=== PATIENT | male | born 1950 | race Caucasian/White ===

== ENCOUNTER 2024-11-05 12:10 | Emergency (ER) | payer MEDICARE, SELFPAY ==
[2024-11-05] VITALS (55 sets, daily range): BP systolic 125–182; BP diastolic 62–136; PULSE 61–91; RESP 12–36; TEMP 36.9; O2SAT 90–98
--- NOTE | 2024-11-05 12:00 | DI.CT_ITS ---
Exam(s) CT CHEST/ABD/PEL W CT THORACIC LUMBAR SPINE REC EXAM: CT CHEST/ABD/PEL W CLINICAL HISTORY: Trauma. TECHNIQUE: Imaging Protocol: Axial computed tomography images with coronal and sagittal reformatted images were created and reviewed. Computer aided detection (CAD) was utilized. Axial, coronal and sagittal images of the thoracic and lumbar spine were reconstructed from the chest abdomen pelvic CT in bone and soft tissue algorithm. CONTRAST MATERIAL: Intravenous: Omnipaque 350 Contrast volume:100 ml Oral: no COMPARISON: CR XR PORTABLE CHEST AP from 11/05/[address] THORACIC LUMBAR SPINE REC from 11/05/2024 FINDINGS: CHEST: Pulmonary parenchyma: No consolidation. No dominant measurable mass. Tracheobronchial tree: No bronchiectasis. No mucous plugging.No bronchial wall thickening. Pleura: No effusion or pneumothorax. Mediastinum: Within moderate size hiatal hernia. No evidence of adenopathy. Pulmonary arteries: No visible emboli. Cardiovascular: The heart size is normal. Coronary arteries are heavily calcified. No pericardial effusion. Thoracic aorta non-dilated. Bones: Unremarkable minimally displaced left posterior 7th and 8th rib fractures. No lytic or blasti c lesions.No thoracic compression fractures. Degenerative changes and minimal scoliosis are noted. Soft tissues: Unremarkable. ABDOMEN and PELVIS: Exam is mildly limited by patient arm position creating streak attic fact on the upper abdomen. Also streak artifact related to metallic densities outside of the patient. Liver: Normal density. No suspicious mass. Gallbladder and biliary tract: No evidence of stones or wall thickening. No biliary dilatation. Pancreas: Normal density, no abnormal calcifications or inflammatory process. Spleen: Normal. Kidneys: Normal size, contour and axis. No radiodense stones. No obstructive uropathy. No suspicious masses seen. Adrenal glands: No masses seen. Aorta: Abdominal portion non-dilated. Lymph nodes: Within normal limits. Soft tissues: Intramuscular lipoma noted in the left abductor groove. Bladder: Unremarkable. Bowel: No obstruction or bowel wall thickening. Diverticulosis of the descending and sigmoid colon. The appendix is normal peer Peritoneal cavity: No ascites. No focal collection. No mesenteric inflammatory response. No free ai r. Bones: New and degenerative disc changes. Question fractures. Posterior elements are intact. Facet degenerative changes are present. Mild scoliosis. Reproductive organs: Unremarkable for age. IMPRESSION: Minimally displaced left 7th and 8th rib fractures. No evidence of pulmonary contusion or pneumothor ax. No acute abnormality in the abdomen or pelvis. No thoracic or lumbar spine fractures. RADIATION DOSE DELIVERED: 512.01mGy.cm Total DLP DATA REPOSITORY: All CT scans at this facility are submitted to the National Radiology Data Registry (NRDR) Dose Index Registry (DIR) with the [employer] (ACR). RADIATION OPTIMIZATION: All CT scans at this facility use at least one of these dose optimization te chniques: automated exposure control; mA and/or kV adjustment per patient size (includes targeted exa ms where dose is matched to clinical indication); or iterative reconstruction.
--- NOTE | 2024-11-05 12:01 | ED.GENADUL_ITS ---
Discharge Plan Discharge Details Chief Complaint: Trauma Clinical Impression: Multiple rib fractures, Injury while downhill skiing, Mild TBI (traumatic brain injury) Primary Care Provider: None,None ED Provider: Armando Simon Home Meds and New Rx's Prescriptions: No Action omeprazole 20 mg capsule,delayed release(DR/EC) 20 mg PO DAILY Patient Comments: TAKE ONE CAPSULE BY MOUTH EVERY DAY 30 MINTUES BEFORE MORNING MEAL HPI General Date/Time Provider Initiated Documentation: 11/05/24 12:16 . HPI Narrative: MDM Primary survey intact. Reassuring shock index. Negative E-FAST exam. Chest x- ray pelvis film obtained and trauma ROM and unremarkable. Patient transferred for CT scan which showed minimally displaced left seventh and eighth ribs. No pulmonary contusion. No pneumothorax. Patient saturating well on room air. Labs unremarkable. Given unclear etiology of fall I obtained troponin testing which was unremarkable. Patient is still having perseverating questions. He is confused about the events leading up to this fall. His pain as well as feeling well-controlled on 4 of morphine. Beyond this confusion is neurologically intact. I requested that Dr. Cooper from the general surgery team evaluate the patient. He will require tertiary survey. I have updated his tetanus and given the abrasions to his face I have ordered 2 g of cephalexin. I advanced his diet and cleared his c-collar. 4:30 PM I was in touch with Dr. Cooper who advised the patient would benefit from tertiary care transfer as he would likely need occupational therapy. I asked health community service representative Izabella to reach out to [facility] 4:45 PM I updated the patient his and signed patient out to Dr. Randall. HPI This is a 74-year-old male arrived emerged part via EMS following a trauma at the [facility]. He reportedly fell and was unconscious for several minutes. He was alert initially alert and oriented but subsequently developed repetitive questioning. He has pain in his low back. He had reassuring vitals. He has bilateral 18-gauge minutes. Patient is not anticoagulated. Exam General: Well-appearing in no acute distress perseverating and confused. Head: Normocephalic, atraumatic. Eye:[Pupils equal, round reactive to light.] Extraocular eye movements intact. No conjunctival injection. No scleral icterus. Ear, nose, mouth, throat: Normal voice, handling secretions normally. No hemotympanum bilaterally. No septal hematoma. Abrasion to chin and left side of nose with associated nasal swelling. No midface instability. Neck: Trachea midline. No midline cervical spinal tenderness. Patient wearing c-collar. Cardiovascular: Well-perfused distal extremities. Regular rate and rhythm. Respiratory: Nonlabored respiration. Clear lungs bilaterally. No flail segments. Back: No step-offs. No deformities. Mid thoracic spinal tenderness. No lumbar spinal tenderness. Gastrointestinal: Nondistended abdomen. Soft. Nontender. No rebound. No guarding. Musculoskeletal: No edema. Moving all 4 extremities spontaneously. 5 out of 5 bilateral upper lower extremity strength. Bilateral upper and lower extremities nontender. Full range of motion. Skin: Normal for age and race, grossly normal temperature and turgor. No acute rash. Neurologic: Alert and appropriate, no apparent acute deficits. GCS 14: E4, V4, M6. Psychiatric: Mood and manner are appropriate. Grooming and personal hygiene are appropriate. Related Data Home Medications ?Medication ?Instructions ?Recorded ?Confirmed omeprazole 20 mg capsule,delayed 20 mg PO DAILY 11/05/24 11/05/24 release Allergies Allergy/AdvReac Type Severity Reaction Status Date / Time No Known Allergies Allergy Verified 11/05/24 14:51 Medical Decision Making Quality:SDOH Health Related Social Needs: No Data to Display PFSH All Active Problems (Updated 11/05/24 @ 15:34 by Armando Simon MD) Mild TBI (traumatic brain injury) (Acute) Injury while downhill skiing (Acute) Multiple rib fractures (Acute) Social History Smoking/Tobacco Use Status: Former Tobacco Use Smoking risk assessment performed?: Yes Drug use: Occasionally POCUS Exam (ED) Efast Exam DATE OF EXAM: 11/05/24 TIME OF EXAM: 12:45 PROVIDER THAT PEFORMED THE STUDY: Armando Simon IS THIS A REPEAT EXAM DURING THIS ENCOUNTER: no REASON FOR EXAM: Other (Trauma) indication: Trauma VISUALIZED STRUCTURES: Hepatorneal space, Pelvis, Pericardium, Perisplenic space, Pleural space/left, Pleural space/right and Other structure: Bilateral lungs PERTINENT FINDINGS/IMPRESSION: no apparent free fluid, no pericardial effusion, no pleural effusion on the left side, no pleural effusion on the right side, no pneumothorax on left side and no pneumothorax on right side INCIDENTAL FINDINGS: Negative eFAST exam Limited Transthoracic Echo: Exam complete Limited Abdominal Exam: Exam complete Limited Retroperitoneal Exam: Exam complete
--- NOTE | 2024-11-05 12:04 | DI.CT_ITS ---
Exam(s) CT HEAD CERV SPINE FACIAL WO EXAM: CT HEAD CERV SPINE FACIAL WO CLINICAL HISTORY: Trauma. TECHNIQUE: Imaging Protocol: Axial computed tomography images with coronal and sagittal reformatted images were created and reviewed COMPARISON: No exams were available for comparison FINDINGS: CT Head: Ventricles and Extra axial spaces: Normal in size and morphology for the patient's age. Hemorrhage: None. Cerebral parenchyma: No evidence of acute hemorrhage or acute infarct. Midline shift: None. Brainstem/Cerebellum: Normal. Calvarium: Normal. Visualized Paranasal sinuses/Mastoids: Clear. Soft Tissues: Unremarkable. CT Face: Facial Bones: No fracture is noted in facial bones. Sinuses and Mastoids: Unremarkable. Globes, extraocular muscles, optic nerves and retrobulbar fat: Normal. Upper aerodigestive tract: Normal. Mandible and bilateral temporomandibular joints: Normal. Soft tissues: Normal. CT Cervical Spine: Bones: No acute fracture or subluxation. Advanced degenerative disc changes. Soft Tissues: No hematoma. Atrophy of the left submandibular gland versus prior surgery. Lung Apices: Clear. IMPRESSION: 1. No acute intracranial process. 2. No acute fracture or subluxation in the cervical spine. 3. No acute facial fracture. RADIATION DOSE DELIVERED: 1,663.22mGy.cm Total DLP DATA REPOSITORY: All CT scans at this facility are submitted to the National Radiology Data Registry (NRDR) Dose Index Registry (DIR) with the [employer] (ACR). RADIATION OPTIMIZATION: All CT scans at this facility use at least one of these dose optimization te chniques: automated exposure control; mA and/or kV adjustment per patient size (includes targeted exa ms where dose is matched to clinical indication); or iterative reconstruction.
[2024-11-05] MEDS: Normal Saline 500 ML 1000 ML IV (12:23)
[2024-11-05] MEDS: fentaNYL 100 MCG/2 ML VIAL 50 MCG IVP (12:23)
--- NOTE | 2024-11-05 12:39 | DI.RAD_ITS ---
Exam(s) XR PELVIS AP EXAM: XR PELVIS AP CLINICAL HISTORY: Trauma. TECHNIQUE: 2D digital imaging was performed. Single AP view. COMPARISON: No exams were available for comparison FINDINGS: BONES: No acute fracture is present. No bony destructive lesion is seen. JOINTS: No dislocation present. Mild left hip joint space narrowing and acetabular spurring. The SI joints and pubic symphysis are unremarkable. SOFT TISSUE: Normal. IMPRESSION: No acute abnormality. Mild degenerative changes of the left hip. DATA REPOSITORY: RADIATION DOSE DELIVERED:
--- NOTE | 2024-11-05 12:40 | DI.RAD_ITS ---
Exam(s) XR PORTABLE CHEST AP EXAM: XR PORTABLE CHEST AP CLINICAL HISTORY: Trauma TECHNIQUE: 2D digital imaging was performed. COMPARISON: CR CHEST 2 VIEWS PA,LAT from 10/04/2013 FINDINGS: Exam is limited by overlying clothing. LUNGS: Clear. No pleural abnormality seen. HEART: Normal size. AORTA: Normal diameter. BONES: No grossly displaced rib fracture is visible. There are degenerative changes in the thoracic spine. Soft tissues: Unremarkable. IMPRESSION: No acute findings. DATA REPOSITORY: RADIATION DOSE DELIVERED:
[2024-11-05] MEDS: ceFAZolin 2 GM/50 ML BAG IVPB (12:52)
[2024-11-05] MEDS: Normal Saline - Diluent 50 ML VIAL IJ (12:54)
[2024-11-05] MEDS: Omnipaque 350 MG/ML 100 ML BTL IJ (12:54)
[2024-11-05 13:00] LABS: Abs Immature Grans 0.03 10^3/uL (0.0-0.06); Absolute Basophil Count 0.02 10^3/uL (0.0-0.2); Absolute Eosinophil Count 0.04 10^3/uL (0.0-0.7); Absolute Lymphocyte Count 0.99 10^3/uL (1.2-3.4); Absolute Neutrophil Count 8.53 10^3/uL (1.2-6.7); Basophils % 0.2 %; Eosinophils % 0.4 %; HCT 39.8 % (40.0-50.0); HGB 13.6 g/dL (13.5-17.5); Immature Grans % 0.3 %; Lymphocytes % 9.6 %; MCH 31.6 pg (27.0-33.0); MCHC 34.2 % (32.0-36.0); MCV 93 fL (80-95); MPV 10.5 fL (8.0-11.0); Monocytes % 6.8 %; Neutrophils % 82.7 %; Platelet Count 163 10^3/uL (130-400); RDW 12.3 % (11.8-14.1); RDW-SD 42.5 fL; WBC 10.31 10^3/uL (4.4-10.8)
[2024-11-05] MEDS: Diph,Pertuss(Acell),Tet Vac/Pf 0.5 ML SYR IM (13:09)
[2024-11-05 13:12] LABS: INR 1.2 (0.9-1.1); Prothrombin Time 11.6 sec (9.1-11.1)
[2024-11-05 13:25] LABS: ALT 11 U/L (16-63); AST 17 U/L (15-37); Albumin 3.1 g/dL (3.4-5.0); Alkaline Phosphatase 52 U/L (46-116); Anion Gap 9.8 mmol/L (3-11); BUN 16 mg/dL (7-18); CO2 25.2 mmol/L (21.0-32.0); Calcium 8.3 mg/dL (8.5-10.1); Chloride 104 mmol/L (98-107); Estimated GFR 78.98 (mL/min/1.73m2); Glucose 110 mg/dL (74-106); Lipase 23 U/L (<78); Potassium 3.4 mmol/L (3.5-5.1); Sodium 139 mmol/L (136-145); Total Protein 6.1 g/dL (6.4-8.2); Troponin I 19 ng/L (<or=76)
[2024-11-05 13:29] LABS: ETHANOL BLOOD < 3.0 mg/dL (<10)
[2024-11-05] MEDS: Ondansetron 4 MG/2 ML VIAL IVP (13:33)
[2024-11-05] MEDS: Lidocaine 5% Patch 1 PATCH TP (14:07)
[2024-11-05] MEDS: MORPHine 4 MG/ML SYR IVP ×2 (14:39→18:00)
[2024-11-05 14:47] LABS: Troponin I 20 ng/L (<or=76)
--- NOTE | 2024-11-05 16:30 | W.SURGCON ---
Date of service: 11/05/24 Time of Service: 16:30 Assessment and Plan Assessment and plan (1) Injury while downhill skiing: Status: Acute Assessment and plan: Blunt thoracic trauma with left-sided seventh and eighth rib fractures -Bao should do just fine with basic analgesia measures, and pulmonary toileting to promote appropriate ventilation and expectoration. The ribs are well aligned, there is no evidence of a pneumothorax or hemothorax. I expect him to make a full recovery from this. Blunt head injury with traumatic brain injury -although it is reassuring that there is no evidence of any intracranial hemorrhage and while his Glascow coma score is currently 15, Bao has at least moderate traumatic brain injury by way of his bedside neurologic exam. Seems most consistent with a severe concussion. Prognosis of this is extremely challenging, as it is still very early with regards to the injury. However, I do think he benefit from transfer to a trauma center as supportive elements for occupational therapy will be critical in his recovery. We do not have those capabilities here. In the meantime, I would continue with basic measures for concussion care, and consider early repeat head CT if there is any lateralizing findings or focal neurologic deficit, or changes Glascow coma score History of Present Illness History of Present Illness Chief Complaint: Concussion with left-sided rib fractures Narrative: Bao is 74 years old. He was skiing today, it appears to have crashed during a run. By report, there did not seem to be any loss of consciousness prior to the fall, rather this is a simple mechanical accident. [place]. He was unconscious at that time. He resumed some level of consciousness during transport down the slope. In the emergency department, he was perseverating, complained a little bit of left-sided pain. Initial chest x-ray was reassuring. Pelvis x-ray was also normal. He underwent CT scans which demonstrated no evidence of any intracranial hemorrhage. CT of the face was negative. CT of the torso demonstrated left-sided seventh and eighth posterior nondisplaced rib fractures. There is no pneumothorax or hemothorax. No other evidence of any meaningful blunt torso injury. Review of Systems Narrative: The review of systems is negative in the days leading up to this accident. PFSH All Active Problems (Updated 11/05/24 @ 15:34 by Armando Simon MD) Mild TBI (traumatic brain injury) (Acute) Injury while downhill skiing (Acute) Multiple rib fractures (Acute) Social History Smoking/Tobacco Use Status: Former Tobacco Use Smoking risk assessment performed?: Yes Drug use: Occasionally Exam Const General: not in distress, not anxious and not diaphoretic Orientation: confused Limitations: altered mental status [facility] Head: abrasion (Nose and chin) and contusion (Nose) Ears: hearing grossly normal bilaterally Mouth: oral mucosae normal Eyes General: appearance normal, both eyes and all related structures Alignment and Position: alignment normal Eyelids: eyelids normal Conjunctivae: conjunctivae normal Sclera: sclerae normal Pupils: PERRL EOM: EOM intact bilaterally Neck Neck: normal visual inspection and full ROM (No pain with active range of motion) Chest Chest: normal inspection of the chest Other: No bony crepitus Resp Effort & Inspection: normal respiratory effort and cough (Pain with forced cough) Auscultation: clear to auscultation bilaterally Other: No bony crepitus, mild of the left chest with deep inspiration GI Other: Abdomen soft and nontender; pelvis stable Neuro Cranial Nerves: PERRL Cognition: abnormal cognition (Perseverative speech, able to recall 0/5 items with brief listing on immedi) Speech: speech normal (Repetitive) Sensory Exam: no sensory deficits noted Results Last Vital Signs Temp 98.4 F 11/05/24 15:53 Pulse 66 11/05/24 15:40 Resp 12 11/05/24 15:40 BP 154/83 H 11/05/24 15:31 Pulse Ox 97 11/05/24 15:40 Labs 11/05/24 12:53 11/05/24 12:53 Labs: Laboratory Results - last 24 hr 11/05/24 11/05/24 11/05/24 12:53 12:58 14:03 WBC 10.31 RBC 4.30 L Hgb 13.6 Hct 39.8 L MCV 93 MCH 31.6 MCHC 34.2 RDW 12.3 Plt Count 163 MPV 10.5 Immature Gran % 0.3 Neutrophils % 82.7 Lymphocytes % 9.6 Monocytes % 6.8 Eosinophils % 0.4 Basophils % 0.2 Nucleated RBC % 0.0 Absolute Neutrophils 8.53 H Absolute Lymphocytes 0.99 L Absolute Monocytes 0.70 Absolute Eosinophils 0.04 Absolute Basophils 0.02 PT 11.6 H INR 1.2 H Sodium 139 Potassium 3.4 L Chloride 104 Carbon Dioxide 25.2 Anion Gap 9.8 BUN 16 Creatinine 1.0 Est GFR (CKD-EPI 2020) 78.98 Glucose 110 H Calcium 8.3 L Total Bilirubin 1.0 AST 17 ALT 11 L Alkaline Phosphatase 52 Troponin I 19 20 Total Protein 6.1 L Albumin 3.1 L Lipase 23 Ethyl Alcohol < 3.0 ABO/Rh A Positive Antibody Screen NEGATIVE 11/05/24 15:02 WBC RBC Hgb Hct MCV MCH MCHC RDW Plt Count MPV Immature Gran % Neutrophils % Lymphocytes % Monocytes % Eosinophils % Basophils % Nucleated RBC % Absolute Neutrophils Absolute Lymphocytes Absolute Monocytes Absolute Eosinophils Absolute Basophils PT INR Sodium Potassium Chloride Carbon Dioxide Anion Gap BUN Creatinine Est GFR (CKD-EPI 2020) Glucose Calcium Total Bilirubin AST ALT Alkaline Phosphatase Troponin I Cancelled Total Protein Albumin Lipase Ethyl Alcohol ABO/Rh Antibody Screen Imaging Abdomen CT scan report/results: report reviewed and image reviewed CT scan - chest: report reviewed and image reviewed CT scan - pelvis: report reviewed and image reviewed
--- NOTE | 2024-11-05 16:57 | ED.FU.B_ITS ---
Follow Up Plan: I spoke with from the trauma team at [facility] who graciously agreed to accept the patient. Will reapply cervical spinal precautions send patient with a BLS crew.
--- NOTE | 2024-11-05 16:57 | W.ED.FU ---
Follow Up Plan: I spoke with from the trauma team at [facility] who graciously agreed to accept the patient. Will reapply cervical spinal precautions send patient with a BLS crew.
== END 2024-11-05 18:07 | disposition critical access hospital (66) ==
PROVIDERS: Emergency Provider Emergency Medicine
DX: S06.89AA Other specified intracranial injury with loss of consciousness status unknown, initial encounter (principal); S22.42XA Multiple fractures of ribs, left side, initial encounter for closed fracture; Z23 Encounter for immunization; W00.0XXA Fall on same level due to ice and snow, initial encounter; Y93.23 Activity, snow (alpine) (downhill) skiing, snowboarding, sledding, tobogganing and snow tubing; Y92.838 Other recreation area as the place of occurrence of the external cause; Z87.891 Personal history of nicotine dependence
CPT/HCPCS: 74177; 76604; 76705; 76857; 80053; 83690; 86850; 86900; 86901; 90471; 90715; 96365; 96375; 96376; 99284; 99285; 70450; 70486; 71045; 71260; 72125; 72170; 80320; 81003; 84484; 85025; 85610; J0690; J2270; J2405; J3010; J3490